=== PATIENT | male | born 1955 | race Two or more races ===

== ENCOUNTER 2024-09-27 19:17 | Inpatient (IN) | payer MEDICARE, OTHER ==
[~2024-09-27] VITALS: Ht 152.4 cm; Wt 77.1 kg
[2024-09-27 19:49] LABS: BASOPHILS # (AUTO) 0.1 K/uL (0.0-0.2); BASOPHILS % (AUTO) 0.7 % (0.0-2.0); EOSINOPHILS # (AUTO) 0.2 K/uL (0.0-0.7); EOSINOPHILS % (AUTO) 1.6 % (0.0-6.0); HEMATOCRIT 27 % (39-51); HEMOGLOBIN 8.8 g/dL (13.5-17.5); LYMPHOCYTES # (AUTO) 0.7 K/uL (0.8-4.8); LYMPHOCYTES % (AUTO) 6.3 % (20.0-44.0); MEAN CORPUSCULAR HEMOGLOBIN 32 PG (26.0-33.0); MEAN CORPUSCULAR HGB CONC 33 g/dl (31.0-36.0); MEAN CORPUSCULAR VOLUME 96 fL (80-96); MONOCYTES # (AUTO) 1.1 K/uL (0.1-1.30); MONOCYTES % (AUTO) 10.6 % (2.0-12.0); NEUTROPHILS # (AUTO) 8.6 K/uL (1.8-8.9); NEUTROPHILS % (AUTO) 80.8 % (43.0-81.0); PLATELET COUNT (AUTO) 307 K/uL (150-450); RED BLOOD CELL COUNT(AUTO) 2.78 MIL/uL (4.5-6.0); RED CELL DISTRIBUTION WIDTH 14.1 % (11.5-15.0); WHITE BLOOD COUNT (AUTO) 10.7 K/uL (4.3-11.0)
[2024-09-27] MEDS ORDERED: NITROGLYCERIN 0.4 MG/TAB BOTTLE ONE (19:57)
[2024-09-27] MEDS: NITROGLYCERIN 0.4 MG/TAB BOTTLE SL ONE (20:00)
[2024-09-27 20:06] LABS: ALANINE AMINOTRANSFERASE 21 U/L (12-78); ALBUMIN 3.3 g/dL (3.4-5.0); ALKALINE PHOSPHATASE 205 U/L (46-116); ASPARTATE AMINOTRANSFERASE 16 U/L (15-37); BILIRUBIN,DIRECT 0.2 mg/dL (0.0-0.2); BILIRUBIN,TOTAL 0.6 mg/dL (0.2-1.0); CALCIUM, SERUM 7.3 mg/dL (8.5-10.1); CARBON DIOXIDE 28 mmol/L (21-32); CHLORIDE 100 mmol/L (98-107); GLUCOSE 256 mg/dL (74-106); POTASSIUM 4.2 mmol/L (3.5-5.1); SODIUM SERUM 138 mmol/L (136-145); TOTAL PROTEIN, SERUM 7.3 g/dL (6.4-8.2); UREA NITROGEN, BLOOD 42 mg/dL (7-18)
[2024-09-27 20:08] LABS: LACTIC ACID 0.8 mmol/L (0.4-2.0)
[2024-09-27 20:11] LABS: MAGNESIUM 2.4 mg/dL (1.8-2.4); PHOSPHORUS 3.7 mg/dL (2.5-4.9)
[2024-09-27 20:41] LABS: APPEARANCE,URINE CLEAR (CLEAR); BILIRUBIN,URINE NEGATIVE (NEGATIVE); BLOOD, URINE TRACE-INTA Ery/uL (NEGATIVE); COLOR,URINE YELLOW (YELLOW); KETONES,URINE NEGATIVE (NEGATIVE); LEUKOCYTE ESTERASE ,URINE NEGATIVE (NEGATIVE); NITRITE, URINE NEGATIVE (NEGATIVE); PROTEIN,URINE 3+ mg/dl (NEGATIVE); UGLUCOSE 2+ mg/dL (NEGATIVE); UROBILINOGEN,URINE 0.2 EU/dL (0.2)
[2024-09-27] MEDS: hydrALAZINE HCL IV 20 MG VIAL IV ONE (21:00)
[2024-09-27] MEDS ORDERED: hydrALAZINE HCL IV 20 MG VIAL ONE (21:04)
[2024-09-27 21:27] LABS: ADD URINE CULTURE NO; BACTERIA,URINE Few /HPF (None Seen); SQUAMOUS EPITHELIAL CELL,UR Rare /HPF (None Seen)
[2024-09-27] MEDS ORDERED: MAG HYDROX/AL HYDROX/SIMETH 30 ML UDC PO PRN (21:30)
[2024-09-27] MEDS ORDERED: Z GUARD REMEDY 4 OZ OINT TP PRN (21:30)
[2024-09-27] MEDS ORDERED: ONDANSETRON HCL/PF 4 MG/2 ML VIAL IVP PRN (21:30)
[2024-09-27] MEDS ORDERED: MAGNESIUM HYDROXIDE 30 ML UDC PO PRN (21:30)
[2024-09-27] MEDS ORDERED: ALBUTEROL FS 2.5 MG/3 ML VIAL.NEB NEB PRN (21:30)
[2024-09-27] MEDS ORDERED: ACETAMINOPHEN 325 MG TABLET PO PRN (21:30)
[2024-09-27] MEDS ORDERED: IPRATROPIUM NEB FS 0.5 MG/2.5 ML AMPUL.NEB NEB PRN (21:30)
[2024-09-27] MEDS ORDERED: DEXTROSE 50%-WATER 50 ML DISP.SYRIN IV PRN (21:30)
[2024-09-27 23:15] VITALS: O2SAT 96
[2024-09-27 23:21] VITALS: BP 160/64; O2SAT 95
[2024-09-27] MEDS: BLOOD SUGAR DIAGNOSTIC 1 EACH STRIP IN SCH (23:23)
[2024-09-27] MEDS ORDERED: INSULIN REGULAR, HUMAN 100 UNIT/ML 10 ML VIAL ONE (23:26)
[2024-09-27 23:30] VITALS: BP 152/60
[2024-09-27 23:45] VITALS: BP 160/52; O2SAT 98
[2024-09-27 23:46] VITALS: BP 150/68; TEMP 98; O2SAT 98
[2024-09-27] MEDS: INSULIN REGULAR, HUMAN 100 UNIT/ML 3 ML VIAL SQ PRN (23:51)
[2024-09-28] VITALS (34 sets, daily range): BP systolic 105–179; BP diastolic 20–99; TEMP 98–98.5; O2SAT 81–100
[2024-09-28] MEDS ORDERED: ALLO100T PO (02:35)
[2024-09-28] MEDS ORDERED: FINA5TAB11 PO (03:06)
[2024-09-28] MEDS ORDERED: HYDR-4077 PO (03:06)
[2024-09-28] MEDS ORDERED: FURO40TA5 PO (03:06)
[2024-09-28] MEDS ORDERED: AMLO-213 PO (03:06)
[2024-09-28] MEDS ORDERED: DOXA4TAB19 PO (03:06)
[2024-09-28] MEDS ORDERED: FAMO20TA80 PO (03:06)
[2024-09-28] MEDS ORDERED: CARV25TA2 PO (03:06)
[2024-09-28] MEDS ORDERED: ATOR20TA PO (03:06)
[2024-09-28] MEDS ORDERED: ESCI10TA PO (03:06)
[2024-09-28 04:54] LABS: BASOPHILS # (AUTO) 0.1 K/uL (0.0-0.2); BASOPHILS % (AUTO) 0.9 % (0.0-2.0); EOSINOPHILS # (AUTO) 0.2 K/uL (0.0-0.7); EOSINOPHILS % (AUTO) 2.7 % (0.0-6.0); HEMATOCRIT 26 % (39-51); HEMOGLOBIN 8.8 g/dL (13.5-17.5); LYMPHOCYTES # (AUTO) 0.6 K/uL (0.8-4.8); LYMPHOCYTES % (AUTO) 8.1 % (20.0-44.0); MEAN CORPUSCULAR HEMOGLOBIN 32 PG (26.0-33.0); MEAN CORPUSCULAR HGB CONC 33 g/dl (31.0-36.0); MEAN CORPUSCULAR VOLUME 95 fL (80-96); MONOCYTES % (AUTO) 12.9 % (2.0-12.0); NEUTROPHILS # (AUTO) 5.8 K/uL (1.8-8.9); NEUTROPHILS % (AUTO) 75.4 % (43.0-81.0); PLATELET COUNT (AUTO) 293 K/uL (150-450); RED BLOOD CELL COUNT(AUTO) 2.76 MIL/uL (4.5-6.0); WHITE BLOOD COUNT (AUTO) 7.7 K/uL (4.3-11.0)
[2024-09-28 05:13] LABS: CREATININE 4.8 mg/dL (0.6-1.3); MAGNESIUM 2.2 mg/dL (1.8-2.4); PHOSPHORUS 3.1 mg/dL (2.5-4.9); POTASSIUM 3.3 mmol/L (3.5-5.1)
[2024-09-28 05:25] LABS: THYROID STIMULATING HORMONE 2.15 uIU/mL (0.358-3.74)
[2024-09-28] MEDS ORDERED: PANTOPRAZOLE 40 MG TABLET.DR PO SCH (07:30)
[2024-09-28] MEDS: FINASTERIDE (5 MG) 5 MG TABLET PO SCH (08:43)
[2024-09-28] MEDS: ALLOPURINOL 100 MG TABLET PO SCH (08:43)
[2024-09-28] MEDS: DOXAZOSIN MESYLATE (4 MG) 4 MG TABLET PO SCH (08:44)
[2024-09-28] MEDS: hydrALAZINE HCL 50 MG TABLET PO SCH (08:44)
[2024-09-28] MEDS: ATORVASTATIN 10 MG TABLET PO SCH (08:45)
[2024-09-28] MEDS: CARVEDILOL 12.5 MG TABLET PO SCH (08:45)
[2024-09-28] MEDS: FAMOTIDINE (20 MG) 20 MG TABLET PO SCH (08:46)
[2024-09-28] MEDS: POTASSIUM CHLORIDE 20 MEQ TAB.PRT.SR PO SCH (08:47)
[2024-09-28] MEDS: ESCITALOPRAM OXALATE (10 MG) 10 MG TABLET PO SCH (08:47)
[2024-09-28] MEDS: AMLODIPINE BESYLATE 10 MG TABLET PO SCH (08:47)
[2024-09-28] MEDS: HEPARIN SODIUM, PORCINE 5000 UNITS/1 ML VIAL SQ SCH (08:48)
[2024-09-28] MEDS: AZITHROMYCIN 500 MG in IV D5W 250 ML IV SCH (09:00)
[2024-09-28] MEDS: CEFTRIAXONE 1 G in IV D5W 50 ML IV SCH (09:00)
[2024-09-28 09:55] LABS: ABG BASE EXCESS 3.5 mmol/L (-2.0-3.0); ABG OXYGEN SATURATION 89.7 % (94.0-98.0); ABG PCO2 40.1 mmHg (35.0-48.0); ABG PH 7.457 (7.350-7.450); ABG PO2 59.2 mmHg (83.0-108.0); COHb 0.8 % (0.5-1.5); MetHb 0.3 % (0.0-1.5); O2Hb 88.7 % (94.0-97.0); SITE, ABG RIGHT BRACHIAL
[2024-09-29] VITALS (13 sets, daily range): BP systolic 115–163; BP diastolic 43–88; TEMP 97.5–97.9; O2SAT 26–98
[2024-09-29 04:57] LABS: ALBUMIN 2.9 g/dL (3.4-5.0); BILIRUBIN,TOTAL 0.4 mg/dL (0.2-1.0); CALCIUM, SERUM 7.2 mg/dL (8.5-10.1); CREATININE 7.3 mg/dL (0.6-1.3); POTASSIUM 4.1 mmol/L (3.5-5.1); TOTAL PROTEIN, SERUM 6.6 g/dL (6.4-8.2)
[2024-09-29] MEDS: hydrALAZINE HCL IV 20 MG VIAL IV PRN (06:17)
[2024-09-29] MEDS: HYDROCODONE/APAP 5/325MG TABLET PO PRN (20:48)
[2024-09-30] VITALS: BP 142/51; TEMP 98.8; O2SAT 94
[2024-09-30 04:00] VITALS: BP 145/53; TEMP 97.9; O2SAT 94
[2024-09-30 07:58] LABS: BILIRUBIN,TOTAL 0.4 mg/dL (0.2-1.0); CALCIUM, SERUM 7.4 mg/dL (8.5-10.1); CREATININE 6.2 mg/dL (0.6-1.3); POTASSIUM 4.5 mmol/L (3.5-5.1); TOTAL PROTEIN, SERUM 6.8 g/dL (6.4-8.2)
[2024-09-30 08:00] VITALS: BP 165/61; TEMP 98.1; O2SAT 91
[2024-09-30 08:07] LABS: HEPATITIS B SURFACE AB Reactive (.)
[2024-09-30] MEDS ORDERED: IV NS 0.9% 250 ML IV PRN (08:30)
[2024-09-30 12:00] VITALS: BP 140/55; TEMP 98.4; O2SAT 96
[2024-09-30 16:00] VITALS: BP 132/50; TEMP 98.2; O2SAT 97
[2024-09-30 20:00] VITALS: BP 145/50; TEMP 97.9; O2SAT 99
[2024-10-01] VITALS: BP 145/50; TEMP 97.9; O2SAT 99
[2024-10-01 04:00] VITALS: BP 143/64; TEMP 98.2; O2SAT 99
[2024-10-01 07:46] LABS: ALBUMIN 3.2 g/dL (3.4-5.0); BILIRUBIN,TOTAL 0.4 mg/dL (0.2-1.0); CALCIUM, SERUM 7.8 mg/dL (8.5-10.1); CREATININE 6.2 mg/dL (0.6-1.3); POTASSIUM 4.8 mmol/L (3.5-5.1); TOTAL PROTEIN, SERUM 7.2 g/dL (6.4-8.2)
[2024-10-01 08:00] VITALS: BP 150/55; TEMP 98.2; O2SAT 98
[2024-10-01] MEDS ORDERED: DOXY100C2 PO (10:36)
[2024-10-01] MEDS ORDERED: AZIT500T4 PO (10:36)
[2024-10-01 11:01] LABS: BASOPHILS % (AUTO) 0.6 % (0.0-2.0); EOSINOPHILS # (AUTO) 0.3 K/uL (0.0-0.7); EOSINOPHILS % (AUTO) 3.8 % (0.0-6.0); HEMATOCRIT 27 % (39-51); HEMOGLOBIN 8.9 g/dL (13.5-17.5); LYMPHOCYTES # (AUTO) 0.8 K/uL (0.8-4.8); LYMPHOCYTES % (AUTO) 10.5 % (20.0-44.0); MEAN CORPUSCULAR HEMOGLOBIN 31 PG (26.0-33.0); MEAN CORPUSCULAR HGB CONC 33 g/dl (31.0-36.0); MEAN CORPUSCULAR VOLUME 96 fL (80-96); MONOCYTES # (AUTO) 0.9 K/uL (0.1-1.30); MONOCYTES % (AUTO) 11.8 % (2.0-12.0); NEUTROPHILS # (AUTO) 5.7 K/uL (1.8-8.9); NEUTROPHILS % (AUTO) 73.3 % (43.0-81.0); PLATELET COUNT (AUTO) 266 K/uL (150-450); RED BLOOD CELL COUNT(AUTO) 2.87 MIL/uL (4.5-6.0); RED CELL DISTRIBUTION WIDTH 14.1 % (11.5-15.0); WHITE BLOOD COUNT (AUTO) 7.7 K/uL (4.3-11.0)
[2024-10-01 12:00] VITALS: BP 144/52; TEMP 98.1; O2SAT 98
[2024-10-01 16:00] VITALS: BP 123/65; TEMP 97.1; O2SAT 98
[2024-10-01 20:00] VITALS: BP 129/57; TEMP 98.1; O2SAT 100
[2024-10-02 04:00] VITALS: BP 147/65; TEMP 98.1; O2SAT 100
[2024-10-02 07:50] LABS: CALCIUM, SERUM 8.3 mg/dL (8.5-10.1); POTASSIUM 4.7 mmol/L (3.5-5.1)
[2024-10-02 12:00] VITALS: BP 134/70
[2024-10-02 15:02] VITALS: BP 135/75; TEMP 98.2; O2SAT 95
== END 2024-10-02 14:49 | disposition home health service (06) | DRG 280 ==
LOC: ER 19:18 → EDSEX 19:18 → ICU 20:54 → TELE-TD 09-29 10:02 → TELE1 09-30 10:41 → MEDSG1 10-01 13:00
PROVIDERS: ADMIT Nurse Practitioner Acute Care; ATTEND Internal Medicine
PROC: 5A1D70Z Performance of Urinary Filtration, Intermittent, Less than 6 Hours Per Day (ICD-10-PCS; principal; 2024-09-27)
PROC: 5A09357 Assistance with Respiratory Ventilation, Less than 24 Consecutive Hours, Continuous Positive Airway Pressure (ICD-10-PCS; 2024-09-27)
DX: I13.2 Hypertensive heart and chronic kidney disease with heart failure and with stage 5 chronic kidney disease, or end stage renal disease (principal); I50.33 Acute on chronic diastolic (congestive) heart failure; I21.A1 Myocardial infarction type 2; J96.01 Acute respiratory failure with hypoxia; N18.6 End stage renal disease; J18.9 Pneumonia, unspecified organism; S22.089A Unspecified fracture of T11-T12 vertebra, initial encounter for closed fracture; E66.2 Morbid (severe) obesity with alveolar hypoventilation; I16.0 Hypertensive urgency; E11.22 Type 2 diabetes mellitus with diabetic chronic kidney disease; E11.40 Type 2 diabetes mellitus with diabetic neuropathy, unspecified; E11.65 Type 2 diabetes mellitus with hyperglycemia; E78.5 Hyperlipidemia, unspecified; Z99.2 Dependence on renal dialysis; D63.8 Anemia in other chronic diseases classified elsewhere; Z68.33 Body mass index [BMI] 33.0-33.9, adult; Z71.3 Dietary counseling and surveillance; E87.6 Hypokalemia; E83.9 Disorder of mineral metabolism, unspecified; Z91.199 Patient's noncompliance with other medical treatment and regimen due to unspecified reason; Z91.81 History of falling; F10.10 Alcohol abuse, uncomplicated; F17.210 Nicotine dependence, cigarettes, uncomplicated; Z20.822 Contact with and (suspected) exposure to COVID-19; W19.XXXA Unspecified fall, initial encounter; Y93.9 Activity, unspecified; Y92.009 Unspecified place in unspecified non-institutional (private) residence as the place of occurrence of the external cause
CPT/HCPCS: 36415; 36600; 71045-TC; 71250-TC; 72131-TC; 80048-TC; 80053-TC; 80061-TC; 80076-TC; 81001; 82803-TC; 82962-TC; 83605-TC; 83735-TC; 83880; 84100-TC; 84443-TC; 84484-TC; 85025-TC; 86706; 87040-TC; 87081-TC; 87086-TC; 87340; 90935-TC; 93307-TC; 94799-TC; A4223; G0378; J0360; J0456; J0696; J1644; J1815; J7030; J7050; J7060